=== PATIENT | female | born 1940 | race Two or more races ===

== ENCOUNTER 2019-05-27 17:49 | Inpatient (IN) | payer MEDICARE ==
[~2019-05-27] VITALS: Ht 166.4 cm; Wt 75.3 kg
[~2019-05-27 17:49] MED LIST: ASPI-1393 PO; ATOR80TA PO; CHOL100044 PO; ESOM40CA PO; GABA-529 PO; HYDR-523 PO; LIP40 PO; METF-414 PO; NAPR-681 PO; NITR0.4T49 SL; POLY255P2 PO; RANO10003 PO
[2019-05-27] MEDS ORDERED: SODIUM CHLORIDE 0.9% 250 ML IV ONE (20:30)
[2019-05-27] MEDS ORDERED: ONDANSETRON HCL 4MG/2ML INJ IV ONE (20:30)
[2019-05-27 21:26] LABS: BASOPHILS % 0.8 % (0.0-2.0); EOSINOPHILS % 3.8 % (0.0-5.0); HEMATOCRIT. 31.2 % (36.0-48.0); HEMOGLOBIN. 10.7 g/dL (12.0-16.0); LYMPHOCYTES % 21.7 % (20.0-50.0); MEAN CORPUSCULAR HEMOGLOBIN 32.2 pg (28.0-32.0); MEAN CORPUSCULAR VOLUME 94.4 fL (81.0-99.0); MEAN PLATELET VOLUME 7.6 fl (7.4-10.4); MONOCYTES % 10.5 % (2.0-8.0); NEUTROPHILS % 63.2 % (40.0-76.0); PLATELET 200 x1000/uL (130-400); RED BLOOD CELL COUNT 3.31 mill/uL (4.2-5.4); RED CELL DISTRIBUTION WIDTH 15.9 % (11.6-14.6)
[2019-05-27 21:32] LABS: CHLORIDE 117 mEq/L (98-107)
[2019-05-27] MEDS ORDERED: FAMOTIDINE 20MG/2ML VIAL IV ONE (22:00)
[2019-05-27] MEDS ORDERED: MAGNESIUM/ALUMINUM HYDROXIDE/SIMETHICONE 30ML UDC PO ONE (22:00)
[2019-05-27] MEDS ORDERED: ACETAMINOPHEN 325MG TABLET PO ONE (22:00)
[2019-05-27] MEDS ORDERED: ASPIRIN 325MG EC TABLET PO ONE (22:30)
[2019-05-27] MEDS ORDERED: CALCIUM GLUCONATE 100MG/ML 10ML VIAL IV ONE (22:45)
[2019-05-27 23:30] VITALS: BP 140/57
[2019-05-28] VITALS: BP 159/66
[2019-05-28] MEDS ORDERED: DEXTROSE 50% WATER 50ML SYRINGE IV PRN (02:45)
[2019-05-28 04:00] VITALS: BP 131/49
[2019-05-28] MEDS ORDERED: GABA-531 PO (04:38)
[2019-05-28] MEDS ORDERED: HYDROCODONE/ACETAMINOPHEN 5/325MG TABLET PO PRN (04:45)
[2019-05-28] MEDS ORDERED: NITROGLYCERIN 0.4MG TABLET SL SL PRN (04:45)
[2019-05-28] MEDS: BLOOD SUGAR DIAGNOSTIC STRIP TEST SCH ×4 (06:10→21:26)
[2019-05-28] MEDS: PANTOPRAZOLE 40MG DR TABLET PO SCH (06:10)
[2019-05-28] MEDS: INSULIN LISPRO 100 UNITS/ML SUBCUT SCH ×4 (06:37→21:00)
[2019-05-28 08:00] VITALS: BP 106/64
[2019-05-28] MEDS: CHOLECALCIFEROL (D3) 1000 UNIT TABLET PO SCH ×3 (08:26→17:12)
[2019-05-28] MEDS: ASPIRIN 81MG EC TABLET PO SCH (08:26)
[2019-05-28] MEDS: RANOLAZINE 500 MG TAB.SR.12H PO SCH ×2 (08:26→17:12)
[2019-05-28] MEDS ORDERED: GABAPENTIN 300MG CAPSULE PO SCH ×2 (09:00→21:30)
[2019-05-28] MEDS ORDERED: MEDICATION NOT ON FORMULARY EA (Atorvastatin Calcium (Lipitor) 1 TAB) PO SCH (09:00)
[2019-05-28] MEDS ORDERED: NAPROXEN 250MG TABLET PO SCH (09:00)
[2019-05-28] MEDS ORDERED: MEDICATION NOT ON FORMULARY EA (Ranolazine (Ranexa) 1 TAB) PO SCH (09:00)
[2019-05-28] MEDS ORDERED: NAPROXEN PO SCH (09:00)
[2019-05-28] MEDS ORDERED: MEDICATION NOT ON FORMULARY EA (Esomeprazole Mag Trihydrate (Nexium) 1 CAP) PO SCH (09:00)
[2019-05-28] MEDS ORDERED: BIOT5000 PO (10:24)
[2019-05-28] MEDS ORDERED: PSYL575P22 PO (10:24)
[2019-05-28] MEDS ORDERED: AMLO2.5T45 PO (10:24)
[2019-05-28] MEDS ORDERED: METF500T60 PO (10:24)
[2019-05-28] MEDS ORDERED: AZIL40TA PO (10:24)
[2019-05-28] MEDS ORDERED: PRAS10TA6 PO (10:24)
[2019-05-28] MEDS ORDERED: METF-272 PO (10:24)
[2019-05-28 11:04] LABS: CLARITY URINE CLOUDY (CLEAR); COLOR URINE YELLOW (YELLOW); KETONES URINE NEGATIVE (NEGATIVE); LEUKOCYTE ESTERASE URINE 3+ (NEGATIVE); NITRITE URINE NEGATIVE (NEGATIVE); OCCULT BLOOD URINE TRACE (NEGATIVE); PH URINE 5.5 (4.5-8.0); PROTEIN URINE NEGATIVE (NEGATIVE); SPECIFIC GRAVITY URINE 1.007 (1.005-1.030); UROBILINOGEN URINE 0.2 E.U./dL (0.2-1.0)
[2019-05-28 11:44] LABS: BASOPHILS % 0.8 % (0.0-2.0); CHLORIDE 108 mEq/L (98-107); EOSINOPHILS % 4.1 % (0.0-5.0); HEMOGLOBIN. 11.8 g/dL (12.0-16.0); LYMPHOCYTES % 15.6 % (20.0-50.0); MEAN CORPUSCULAR HEMOGLOBIN 31.7 pg (28.0-32.0); MEAN CORPUSCULAR VOLUME 93.7 fL (81.0-99.0); MEAN PLATELET VOLUME 8.3 fl (7.4-10.4); MONOCYTES % 13.7 % (2.0-8.0); NEUTROPHILS % 65.8 % (40.0-76.0); PLATELET 249 x1000/uL (130-400); RED BLOOD CELL COUNT 3.73 mill/uL (4.2-5.4); RED CELL DISTRIBUTION WIDTH 15.9 % (11.6-14.6)
[2019-05-28 11:50] LABS: LDL CHOLESTEROL 79 mg/dL (5-100)
[2019-05-28 11:54] LABS: HDL CHOLESTEROL 61 mg/dL (40-59)
[2019-05-28 12:00] VITALS: BP 107/55
[2019-05-28 12:10] LABS: *AMPHETAMINES SCREEN URINE NEGATIVE (NEGATIVE); *BARBITURATES SCREEN URINE NEGATIVE (NEGATIVE); *BENZODIAZEPINES SCREEN URINE NEGATIVE (NEGATIVE); *COCAINE SCREEN URINE NEGATIVE (NEGATIVE); METHADONE URINE SCREEN NEGATIVE (NEGATIVE); OPIATES URINE SCREEN NEGATIVE (NEGATIVE)
[2019-05-28 12:11] LABS: CANNABINOID URINE SCREEN NEGATIVE (NEGATIVE); PHENCYCLIDINE URINE SCREEN NEGATIVE (NEGATIVE)
[2019-05-28 16:00] VITALS: BP 113/57
[2019-05-28] MEDS ORDERED: LEVOFLOXACIN 500MG PREMIX 100 ML IV SCH (18:00)
[2019-05-28 20:09] VITALS: BP 120/55
[2019-05-28] MEDS ORDERED: ATORVASTATIN CALCIUM 40MG TABLET PO SCH (21:00)
[2019-05-29] VITALS: BP_SYST 111; BP_SYST 121; BP_DIAS 59; BP_DIAS 65
[2019-05-29 04:00] VITALS: BP 129/65
[2019-05-29] MEDS: PANTOPRAZOLE 40MG DR TABLET PO SCH (05:55)
[2019-05-29] MEDS: BLOOD SUGAR DIAGNOSTIC STRIP TEST SCH ×3 (05:56→16:45)
[2019-05-29] MEDS: INSULIN LISPRO 100 UNITS/ML SUBCUT SCH ×2 (06:03→13:00)
[2019-05-29 08:00] VITALS: BP 111/64
[2019-05-29 08:16] LABS: BASOPHILS % 0.7 % (0.0-2.0); EOSINOPHILS % 5.5 % (0.0-5.0); HEMATOCRIT. 36.6 % (36.0-48.0); HEMOGLOBIN. 12.3 g/dL (12.0-16.0); LYMPHOCYTES % 21.5 % (20.0-50.0); MEAN CORPUSCULAR HEMOGLOBIN 31.5 pg (28.0-32.0); MEAN CORPUSCULAR VOLUME 93.4 fL (81.0-99.0); MEAN PLATELET VOLUME 8.2 fl (7.4-10.4); MONOCYTES % 13.9 % (2.0-8.0); NEUTROPHILS % 58.4 % (40.0-76.0); PLATELET 247 x1000/uL (130-400); RED BLOOD CELL COUNT 3.92 mill/uL (4.2-5.4); RED CELL DISTRIBUTION WIDTH 15.8 % (11.6-14.6)
[2019-05-29] MEDS: ASPIRIN 81MG EC TABLET PO SCH (09:55)
[2019-05-29] MEDS: RANOLAZINE 500 MG TAB.SR.12H PO SCH (09:55)
[2019-05-29] MEDS: CHOLECALCIFEROL (D3) 1000 UNIT TABLET PO SCH ×2 (09:55→12:07)
[2019-05-29 12:00] VITALS: BP 123/56
[2019-05-29 16:00] VITALS: BP 109/54
[2019-05-29 16:11] VITALS: BP 109/54
[2019-05-29] MEDS ORDERED: LEVOFLOXACIN 250MG PREMIX 50 ML IV SCH (18:00)
[2019-05-30] MEDS ORDERED: FAMOTIDINE 20MG TABLET PO SCH (09:00)
== END 2019-05-29 17:30 | disposition home or self-care (01) | DRG 392 ==
LOC: ER 17:49 → 5WST 22:37 → EDBEDREQTM 22:39 → EDBEDREQ 22:39 → ENRESERV 22:50
PROVIDERS: ADMIT Internal Medicine; ATTEND Internal Medicine
DX: K21.9 Gastro-esophageal reflux disease without esophagitis (principal); E44.1 Mild protein-calorie malnutrition; N39.0 Urinary tract infection, site not specified; E11.9 Type 2 diabetes mellitus without complications; R07.9 Chest pain, unspecified; T39.395A Adverse effect of other nonsteroidal anti-inflammatory drugs [NSAID], initial encounter; E78.5 Hyperlipidemia, unspecified; E87.6 Hypokalemia; E87.8 Other disorders of electrolyte and fluid balance, not elsewhere classified; I10 Essential (primary) hypertension; I25.10 Atherosclerotic heart disease of native coronary artery without angina pectoris; Z79.82 Long term (current) use of aspirin; Z95.5 Presence of coronary angioplasty implant and graft; Z68.27 Body mass index [BMI] 27.0-27.9, adult; Z88.0 Allergy status to penicillin; Z79.899 Other long term (current) drug therapy; Z79.84 Long term (current) use of oral hypoglycemic drugs; Y92.89 Other specified places as the place of occurrence of the external cause
CPT/HCPCS: 36415; 71045; 80048; 80061; 80305; 81003; 82962; 83036; 83880; 84443; 84484; 87077; 87186; 93005; 93306; 96374; 99285; J0610; J1815; J1956; J2405; J3490; J7050

== ENCOUNTER 2022-08-08 12:35 | Emergency (ER) | payer MEDICARE ==
[~2022-08-08] VITALS: Ht 170.2 cm; Wt 78.0 kg
[~2022-08-08 12:35] MED LIST changes: +AMLO2.5T45 PO; -ASPI-1393 PO; +ASPI-1497 PO; -ATOR80TA PO; +AZIL40TA PO; +BIOT5000 PO; +GABA-290 MT; -GABA-529 PO; -LIP40 PO; -METF-414 PO; +METF500T60 PO; -NAPR-681 PO; +PRAS10TA6 PO; +PSYL575P22 PO
[2022-08-08 12:47] VITALS: BP 152/59
[2022-08-08] MEDS ORDERED: ACETAMINOPHEN 325MG TABLET PO ONE (15:15)
[2022-08-08] MEDS ORDERED: BACITRACIN ZINC OINT UDPKT TOP ONE (15:45)
[2022-08-08] MEDS ORDERED: LIDOCAINE HCL/PF 1% 10 MG/ML 5ML VIAL INFIL ONE (15:45)
[2022-08-08] MEDS ORDERED: TETANUS, DIPHTHERIA, PERTUSSIS VAC/PF 0.5ML (>10YR OLD) IM ONE (15:45)
[2022-08-08] MEDS ORDERED: BO1 TP (17:14)
== END 2022-08-08 17:26 | disposition home or self-care (01) ==
LOC: ER 12:35
DX: S01.81XA Laceration without foreign body of other part of head, initial encounter (principal); W18.39XA Other fall on same level, initial encounter; Y93.89 Activity, other specified; Y92.89 Other specified places as the place of occurrence of the external cause; Y99.8 Other external cause status; E11.9 Type 2 diabetes mellitus without complications; E78.00 Pure hypercholesterolemia, unspecified; I95.9 Hypotension, unspecified; Z79.899 Other long term (current) drug therapy
CPT/HCPCS: 12001; 70450; 70486; 90471; 90715; 99284; J3490